=== PATIENT | female | born 1995 | race Caucasian/White ===

== ENCOUNTER → 2023-12-11 | Outpatient (CLI) | payer OTHER, SELFPAY | END | disposition home or self-care (01) | LOC: LABSPEC 12:22 | PROVIDERS: Referring Provider Physician Assistant; Visit Provider Physician Assistant | DX: N39.0 Urinary tract infection, site not specified (principal) | CPT/HCPCS: 87086; 87088; 87186 ==

== ENCOUNTER → 2024-01-13 | Outpatient (CLI) | payer OTHER, SELFPAY | END | disposition home or self-care (01) | LOC: LABSPEC 12:04 | PROVIDERS: Referring Provider Physician Assistant; Visit Provider Physician Assistant | DX: R30.0 Dysuria (principal) | CPT/HCPCS: 87086; 87088; 87186 ==

== ENCOUNTER 2024-06-28 09:27 | Day surgery (SDC) | payer OTHER, SELFPAY ==
[2024-06-28] VITALS (12 sets, daily range): BP systolic 111–128; BP diastolic 61–89; PULSE 74–100; RESP 14–20; TEMP 36.6–37.2; O2SAT 98–100; BMI 23.3
[2024-06-28] MEDS: Bupiv/Epi 0.25% 30 ML Vial (09:39)
[2024-06-28] MEDS: Lactated Ringers 1,000 ML 15 ML IV (09:56)
--- NOTE | 2024-06-28 10:02 | PCM.PRE.AN2 ---
ASA Classification* ASA Classification ASA Classification: 2 (Be wary of bronchospasm -- the patient reports severe asthma around cigarette smoke, so it is possible the sevo triggers a bronchospasm. Low threshold to give albuterol) Assessment & Plan Anesthesia* Anesthesia Assessment Anesthesia Assessment: Discussed sedation and/or anesthesia options, risks, benefits, and alternatives with patient/parents/legal guardian/POA. Questions invited. The patient/parents/legal guardian/POA seems to understand and agrees to proceed with anesthesia plan. Reviewed the physical assessment, medical history, allergy history and patient home medications list prior to surgery/procedure/anesthetic and documented any changes. Performed airway and anesthesia risk assessments. Anesthesia Type Anesthesia Type: General History Source History Obtained from:: Patient and Chart Anesthesia Focused Assessment* Temperature: 98.5 F Pulse Rate: 81 Blood Pressure: 111/70 Respiratory Rate: 16 Pulse Ox: 100 Airway Assessment Mouth opens: >3 cm Mallampati Score: II Teeth Condition: Intact Neck Range of motion (ROM): Full ROM Focused Labs Anesthesia Preop lab: CBC WBC 10.8 K/mm3 (4.4-11.0) 06/09/24 17:30 06/09/24 RBC 4.70 M/mm3 (4.2-5.4) 06/09/24 17:30 06/09/24 Hgb 14.1 g/dL (12.0-15.0) 06/09/24 17:30 06/09/24 Hct 42.0 % (37-47) 06/09/24 17:30 06/09/24 Plt Count TNP 06/09/24 17:30 06/09/24 CHEMISTRY Potassium 4.3 mmol/L (3.3-5.1) 06/09/24 17:30 06/09/24 Sodium 135 mmol/L (133-145) 06/09/24 17:30 06/09/24 BUN 10 mg/dL (4-19) 06/09/24 17:30 06/09/24 Creatinine 0.90 mg/dL (0.70-1.20) 06/09/24 17:30 06/09/24 Glucose 113 mg/dL (70-99) H 06/09/24 17:30 06/09/24 COAG Urine Test Pending 06/28/24 09:50 06/28/24 Pre-Assessment Diagnosis/Proposed Procedure Planned Operative Procedure(s): LAP CHOLEY WITH IOC Anesthesia History Anesthesia History - waste disposal 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 When Was Last Pacemaker Check QUESTION #4 FULL TEXT: You/Your Family Experience fever (hyperthermia) with Anesthesia Last Oral Intake Last Oral intake: Last Oral Intake NPO since 19:00 06/28/24 09:46 Meds taken in AM with sips of No 06/28/24 09:46 water? Meds patient instructed to take am of surgery PONV PONV - waste disposal leakage tester: PONV - waste disposal leakage tester Female Yes 06/18/24 10:13 HX of Motion Sickness Yes 06/18/24 10:13 HX of N/V After Surgery No 06/18/24 10:13 Non-Smoker Yes 06/18/24 10:13 Duration of Surgery greater No 06/18/24 10:13 than 60 minutes Number of Risk Factors 3 06/18/24 10:13 PONV Score Moderate Risk 06/18/24 10:13 Height & Weight Height & Weight: Anesthesia: Height & Weight Height 5 ft 4 in 06/28/24 09:46 Weight: 61.7 kg 06/28/24 09:46 Body Mass Index (BMI) 23.3 06/28/24 09:46 Respiratory Assessment Respiratory Assessment - waste disposal leakage tester: Respiratory Tract Infection Hx - waste disposal leakage tester Hx Respiratory Tract Infection No 06/18/24 10:13 STOP Sleep Apnea STOP Sleep Apnea - waste disposal leakage tester: STOP Sleep Apnea - waste disposal leakage tester Hx Hypertension No 06/18/24 10:13 Hx Sleep Apnea No 06/18/24 10:13 CPAP BIPAP Do you snore loudly (louder No 06/18/24 10:13 than talking or can be heard Do you often feel tired/ No 06/18/24 10:13 fatigued/ sleepy during daytime? Has anyone observed you stop No 06/18/24 10:13 breathing during sleep? STOP Results Negative 06/18/24 10:13 QUESTION #5 FULL TEXT : Do you snore loudly (louder than talking or can be heard through closed doors)? 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 Specify any problems Hx of Preganancy in last 3 No 06/18/24 10:13 Months Nurse Filling Out Transfusion DSCHRIBER 06/18/24 10:13 & Questions: Date: 06/18/24 06/18/24 10:13 Time: 10:14 06/18/24 10:13 Patient unable to answer at this time (ie. confused, unrespo /Reproduction History /Reproductive History - waste disposal leakage tester: /Reproductive Hx- waste disposal leakage tester Hx Now No 06/18/24 10:13 Gestational Age (in weeks): EDC: Hx Hx Para Hx Section SAB No 06/18/24 10:13 Active Medications Active Medications: Current Medications Generic Name Dose Route Start Last Admin Trade Name Freq PRN Reason Stop Dose Admin Lactated Ringer's 1,000 mls @ 15 mls/hr 06/28/24 09:45 06/28/24 09:56 IV 15 mls/hr .Q48H ZOILA Administration PFSH Medical History (Updated 06/18/24 @ 10:17 by Radhika Nieto) Wears glasses Non-smoker Constipation Home Medications ?Medication ?Instructions ?Recorded ?Last Taken ?Type ondansetron 4 mg disintegrating 4 mg PO Q6H PRN nausea and 06/09/24 Unknown Rx tablet vomiting #15 tabs albuterol sulfate 90 mcg/actuation 2 puff inhalation Q6H PRN dyspnea 06/18/24 Unknown History aerosol inhaler Allergy/AdvReac Type Severity Reaction Status Date / Time cigarette smoke Allergy Intermediate Shortness Verified 06/28/24 09:45 of breath morphine AdvReac Swelling Verified 06/28/24 09:45 Surgical History (Updated 06/18/24 @ 10:17 by Radhika Nieto) History of wisdom tooth extraction Social History Smoking Status: Never smoker alcohol intake: never substance use type: does not use Review of Systems (Anesthesia) ROS Narrative System reviewed and no additional complaints, except as documented. Physical Exam Const alert, oriented x3 and average body habitus Resp normal respiratory effort, normal air movement and clear to auscultation bilaterally Cardio regular rate, regular rhythm, no murmurs and diaphoretic
[2024-06-28 10:12] LABS: Internal QC Validated? YES +Cl - CLEAR BKGD; Pregnancy, Urine Negative Negative
--- NOTE | 2024-06-28 10:37 | HP.PCM_ITS ---
HPI - General General Date of Admission: 06/28/24 Date of Service: 06/28/24 Chief Complaint: RUQ pain HPI Narrative FARIBA LUCAS, is a 28 F who presents for lap rachel. Patient with long standing issues w RUQ pain [facility] Medical History (Updated 06/28/24 @ 10:[address] Donnie Jewell MD) Biliary colic Wears glasses Non-smoker Constipation Home Medications ?Medication ?Instructions ?Recorded ?Last Taken ?Type ondansetron 4 mg disintegrating 4 mg PO Q6H PRN nausea and 06/09/24 Unknown Rx tablet vomiting #15 tabs albuterol sulfate 90 mcg/actuation 2 puff inhalation Q 6H PRN dyspnea 06/18/24 Unknown History aerosol inhaler Allergy/AdvReac Type Severity Reaction Status Date / Time cigarette smoke Allergy Intermediate Shortness Verified 06/28/24 09:45 of breath morphine AdvReac Swelling Verified 06/28/24 09:45 Surgical History History of wisdom tooth extraction Social History Smoking Status: Never smoker alcohol intake: never substance use type: does not use Vital Signs Vital Signs Vital Signs: 06/28/24 09:46 06/28/24 09:46 06/28/24 10:08 Temperature 98.5 F 98.5 F Temperature Source Temporal Pulse Rate 81 81 Respiratory Rate 16 16 Respiratory Pattern Normal Blood Pressure 111/70 111/70 Blood Pressure Mean 83 Blood Pressure Source Monitor Blood Pressure Position Semi-Fowlers Blood Pressure Location Left Arm Pulse Ox 100 100 Oxygen Delivery Method Room Air Weight Weight: 136 lb 0.403 oz Body Mass Index (BMI) 23.3 Physical Exam Const alert, oriented x3 and no apparent distress Results Lab / Micro Data Labs: Laboratory Results - last 24 hr 06/28/24 09:50: Urine Test Negative Assessment & Plan Assessment/Plan (1) Biliary colic: PLAN: Plan lap rachel today
--- NOTE | 2024-06-28 11:00 | GALL_PTH ---
PATIENT: FARIBA LUCAS [place] [facility] [place][id number] AGE/SX: 28/F ROOM: RE06/28/[address]: Dr. Donnie Jewell MD : 1995 BED: DIS: 06/28/2024 SPEC #: [id number] RECD: 06/28/24 13:01 STATUS: YAYO REGiulia #: [id number] MELANIE: 06/28/24 11:[address]: Donnie Jewell DEPT: SURGICAL PATHOLOGY RECD BY: Martell Francois ENTERED: 06/28/24 13:38 SP TYPE: MENDOZA URIBE DR: NETO CHAPMAN Tissues: A - Gallbladder, NOS Procedures: Surgery Specimen Level III HEADER OPERATION: Laparoscopic, cholecystectomy with IOC PRE-OP DIAGNOSIS: Biliary colic TISSUE SUBMITTED: A- Gallbladder MICROSCOPIC DIAGNOSIS A. Gallbladder, cholecystectomy: * Mild chronic cholecystitis MICROSCOPIC DESCRIPTION Slides are reviewed. GROSS DESCRIPTION A. Received in formalin in a container labeled with the patient's name, date of , and gallbladder is a 6.7 x 2.2 x 2.0 cm intact cholecystectomy specimen. A clamped, 0.5 cm in length by 0.3 cm in diameter cystic duct margin is identified and inked black. The serosa is blue-dey, smooth, and glistening with an opposing roughened and cauterized hepatic bed. The specimen is opened to reveal an abundant amount of thick brown bile with no stones identified in the specimen or in the container. The mucosa is ching-brown and predominantly velvety. There is an average wall thickness of 0.2 cm. Belt Notcher sections:A1. Cystic duct margin, en face with full-thickness sections [facility] 06-28-2024 CPT:[id number]
--- NOTE | 2024-06-28 11:27 | RAD_ITS ---
EXAM: DX cholangiogram OR initial CLINICAL HISTORY: Cholecystectomy with intraoperative cholangiogram TECHNIQUE: Cholangiogram with 44 images FINDINGS: Total fluoroscopy time 7.5 seconds Cumulative dose 1.54 mGy Contrast is instilled into the cystic duct post cholecystectomy. Cystic duct appears within limits. Contrast fills intra and extrahepatic biliary ducts without ductal dilation. Contrast flows freely into the duodenum. No evidence of filling defect. Please refer to operative report for further detail. RAD/Cholangiogram/ O R,Initial IMPRESSION: Intraoperative cholangiogram as above. Reading Location: [id number]
--- NOTE | 2024-06-28 12:02 | EX.PCM.DISCH ---
Discharge Instructions Diet Discharge Diet: Light diet - advance as tolerated Activity Discharge Activity: Return to Normal Activity and May Shower May shower in (days): 1 Ice area for (Minutes): 30 Lifting Restrictions: NO LIFTING OVER 20 POUNDS FOR 3-4 WEEKS Dressing / Incision Call your doctor if your incision/area has: Continuous Slow Oozing, Sudden Increased Bleeding, Increased Pain/ Swelling, Increased Redness, Foul Smelling Discharge and Swelling at the incision site Call your doctor if you observe: Fever of 101 or Higher Cleanse incision/area with: Soap & Water Follow Up Care Please Follow Up With: Donnie Jewell MD When: 2 weeks. Please call office to schedule appointment Test Results: Test results from this visit will be discussed in further detail at your follow-up appointment, if applicable. Discharge Plan Admission Primary Reason for Your Visit: Laparoscopic cholecystectomy Attending Provider: Donnie Jewell Primary Care Provider: ALIE ADDISON Instructions Print Language: Estonian Discharge Orders/Prescriptions Prescriptions: New oxycodone-acetaminophen [Percocet] 5-325 mg tablet 1 tab PO Q8H PRN (Reason: pain) 3 Days Qty: 10 0RF Continued ondansetron 4 mg tablet,disintegrating 4 mg PO Q6H PRN (Reason: nausea and vomiting) Qty: 15 0RF albuterol sulfate 90 mcg/actuation HFA aerosol inhaler 2 puff inhalation Q6H PRN (Reason: dyspnea) Referrals / Follow Up: ALIE ADDISON CRNP [Primary Care Provider] - Disposition Disposition (needs filled in before D/C Order can be placed): Home, Self Care
--- NOTE | 2024-06-28 12:06 | PCM.OPRPT ---
Problems Associated Problem List Diagnoses (1) Biliary colic: Procedures Digestive 40xxx-49xxx: 36046 Laparo cholecystectomy/graph Operative Report (Standard) Operative Information Date of Procedure: 06/28/24 Pre-Operative Diagnosis: Biliary colic Post-Operative Diagnosis: Same Surgery/Procedure Performed: Laparoscopic cholecystectomy with intraoperative cholangiograms side panel hanger: Yes Pbx Mechanic: Ancelmo Cole Tasks completed by cutting table operator first: Closing, Trocar and Retracting Type of Anesthesia: General and Local RN Documented Start/Stop Times: Operation Date: 06/28/24 11:00 Case Time Into Pre-Op 06/28/24 09:38 Out of Pre-Op 06/28/24 10:52 Anesthesia Start 06/28/24 10:55 Into Room 06/28/24 10:55 Procedure Start 06/28/24 11:16 Procedure End 06/28/24 12:11 Anesthesia End 06/28/24 12:13 Out of Room 06/28/24 12:13 Into Recovery 06/28/24 12:15 Procedure Start Time: 11:16 Procedure Stop Time: 12:11 Select all DRAINS/GRAFTS/IMPLANTS that apply: None Estimated Blood Loss: 20 mL Specimen collected: Yes Description of specimen(s) removed: Gallbladder Description of surgery: Patient is a 28-year-old female who presented to my office with persistent right upper quadrant pain off and on for years. She had an ultrasound that showed no gallstones or wall thickening. A HIDA scan was also performed and was normal however her symptoms were pretty classic for biliary colic. She was quite miserable. I offered her a laparoscopic cholecystectomy in hopes that this would resolve her symptoms. We discussed the details of the planned surgery including risk benefits and alternatives. She wished to proceed. She was brought to the operating room today following informed consent. She was placed supine on the operative table with arms outstretched on arm boards. A general anesthesia was induced. Once adequately sedated the abdomen was then prepped and draped in the usual sterile manner. A 5 mm incision was made just below the umbilicus through which a 5 mm trocar was placed optically. This was placed without incident. Once in place the abdomen is then fully insufflated with CO2 gas. A 5 mm 0 degree scope was inserted. There were no signs of bowel or vascular injury. Next two 5 mm trocars were placed under direct visualization of the right upper quadrant. Next a 12 mm trocar was placed in the epigastric area. The gallbladder was identified. It appeared grossly normal as it was not thickened. There was no adhered omentum. The gallbladder was reflected in a cephalad direction. The peritoneum on either side of the gallbladder was then incised using hook electrocautery. The infundibulum the gallbladder was then dissected out. The cystic duct and cystic artery were both dissected out circumferentially. The lower third of the gallbladder was then removed from the cystic plate. At this point we are able to achieve a critical view of safety seen both the cystic duct and cystic artery is the only 2 structures coming to the gallbladder. Next cholangiograms were then performed by placing a 10 mm clip on the gallbladder side of the cystic duct. A small ductotomy was made using curved scissors. There was some bleeding from a superficial vessel. This was cauterized. The cholangiogram catheter was then inserted and then cholangiograms were then performed using Omnipaque. This showed good opacification of the biliary tree without any obvious filling defects. The cystic duct was then clipped 3 times using a 10 mm clip packerhead machine operator. The cystic duct was then transected. The cystic artery was then clipped and transected in a similar manner. The gallbladder was then removed from the liver bed using electrocautery and the J-hook. The gallbladder once free was placed into a bag and was easily brought out through the 12 mm trocar site. The trocar was then replaced. Liver bed was nicely hemostatic. The right upper quadrant was then copiously irrigated and suctioned. Hemostasis was excellent. The fascia at the epigastric trocar site was then closed using 0 PDS with the aid of the suture passer/fascial closure device. The incisions were then injected with local anesthetic and then closed using 4-0 Vicryl. Skin glue was applied as dressing. She was awakened anesthesia and taken recovery in good condition. A MAINTENANCE AND ENGINEERING MANAGER was utilized as a first helper. Her role included holding the camera, retracting the gallbladder and assistance with skin closure Surgical Findings: Normal cholangiogram Complications Complications: No Admit VTE Documentation VTE Present on Admission: No VTE Mechan Device Prophylaxis: SCD's VTE Pharm Prophylaxis ordered?: No Reason prophylaxis not ordered: Treatment Not Indicated
--- NOTE | 2024-06-28 12:25 | PCM.POST.ANE ---
Anesthesia: Postop Eval I Current Vital Signs Temperature: 98 F Pulse Rate: 84 Blood Pressure: 111/65 Respiratory Rate: 20 Pulse Ox: 100 Oxygen Delivery Method: Room Air Assessment Airway patent: Yes Spontaneous unlabored respirations: Yes Mental status: Awake nausea: Yes Vomiting: No Anesthesia Complication: No Fluid Hydration Crystalloid volume administer (ml): 1,100 Total IV fluid infused: 1,100 Progress Note Anesthesia document: Postop Eval 1 completed: Yes
--- NOTE | 2024-06-28 13:49 | POSTOPAN2_ITS ---
Anesthesia Postop Eval I Sum Postop Eval Completion status Anesthesia document: Postop Eval 1 completed: Yes Anesthesia Postop Eval I Summary Anesthesia Postop Eval I Summary: Anesthesia Postop Eval I: Assessment Summary Airway patent Yes 06/28/24 12:26 [email or web address] Spontaneous unlabored Yes 06/28/24 12:26 [email or web address] respirations Mental status Awake 06/28/24 12:26 [email or web address] nausea Yes 06/28/24 12:26 [email or web address] Vomiting No 06/28/24 12:26 [email or web address] Anesthesia Postop Eval I: Fluid Summary Crystalloid volume administer 1,100 06/28/24 12:26 [email or web address] (ml) Colloids volume administered ( ml) Blood Product volume administered (ml) Total IV fluid infused 1,100 06/28/24 12:26 [email or web address] Anesthesia Postop Eval I: Summary Notes Anesthesia Complication No 06/28/24 12:26 [email or web address] Anesthesia Complication Comment: Post-operative progress note Anesthesia: Postop Eval II Evaluation Mental status: Awake Pain Level: 0 nausea: No Vomiting: No Complications Anesthesia Complication: No
--- NOTE | 2024-06-28 13:49 | PCM.POSTANE2 ---
Anesthesia Postop Eval I Sum Postop Eval Completion status Anesthesia document: Postop Eval 1 completed: Yes Anesthesia Postop Eval I Summary Anesthesia Postop Eval I Summary: Anesthesia Postop Eval I: Assessment Summary Airway patent Yes 06/28/24 12:26 WET [email or web address] Spontaneous unlabored Yes 06/28/24 12:26 WET [email or web address] respirations Mental status Awake 06/28/24 12:26 WET [email or web address] nausea Yes 06/28/24 12:26 WET [email or web address] Vomiting No 06/28/24 12:26 WET [email or web address] Anesthesia Postop Eval I: Fluid Summary Crystalloid volume administer 1,100 06/28/24 12:26 WET [email or web address] (ml) Colloids volume administered ( ml) Blood Product volume administered (ml) Total IV fluid infused 1,100 06/28/24 12:26 WET [email or web address] Anesthesia Postop Eval I: Summary Notes Anesthesia Complication No 06/28/24 12:26 WET [email or web address] Anesthesia Complication Comment: Post-operative progress note Anesthesia: Postop Eval II Evaluation Mental status: Awake Pain Level: 0 nausea: No Vomiting: No Complications Anesthesia Complication: No
== END 2024-06-28 14:41 | disposition home or self-care (01) ==
LOC: SDC 09:28 → AC 09:29
PROVIDERS: Anesthesiology; PCP Nurse Practitioner Adult Health; Referring Provider Surgery; Visit Provider Surgery
PROC: (CPT 47610; principal; 2024-06-28 10:40)
DX: K80.44 Calculus of bile duct with chronic cholecystitis without obstruction (principal)
CPT/HCPCS: 47563; 00790; 74300; 76000; 81025; 88304; 93005; C1769; J2405

== ENCOUNTER 2024-09-02 03:46 | Emergency (ER) | payer OTHER, SELFPAY ==
[2024-09-02 03:46] VITALS: BP 119/68; PULSE 83; RESP 16; TEMP 37.1; O2SAT 99; BMI 22.9
[2024-09-02] MEDS: 0.9% Normal Saline (1000mL) 1,000 ML 999 ML IV (04:10)
[2024-09-02] MEDS: DiphenhydrAMINE 50 MG/ML Syringe IV (04:10)
--- NOTE | 2024-09-02 05:06 | EX.ED.DYSGE1 ---
HPI History of Present Illness Chief Complaint: Headache Informant: patient Narrative Narrative: Patient is a 28-year-old female who reports a past medical history of migraine headache. She states that she is approximately 4 weeks . She reports that with her last child who is now 2 years old she did have more frequent migraines. She states that she developed a headache yesterday that came on gradually and increased over the course of hours. She states she is sensitive to light and sound and that this headache feels similar nature to her previous. She reports because of her she knows there is limited medications she can take but despite using [id number] medications she has had no symptom improvement and therefore comes in for evaluation [facility] Medical History Biliary colic Wears glasses Non-smoker Constipation Migraine Pneumonia Vaginal delivery Home Medications ?Medication ?Instructions ?Recorded ?Last Taken ?Type ondansetron HCl 4 mg tablet 4 mg PO Q8H PRN nausea and 04/20/24 Unknown Rx vomiting #10 tabs vitamin#30 30 mg iron-10 1 cap PO QDAY 04/20/24 Unknown History mg iron-folic acid 1 mg-omg3 capsule albuterol sulfate 90 mcg/actuation 2 puff inhalation Q6H PRN dyspnea 06/18/24 Unknown History aerosol inhaler Allergy/AdvReac Type Severity Reaction Status Date / Time cigarette smoke Allergy Intermediate Shortness Verified 07/14/24 08:10 of breath morphine AdvReac Swelling Verified 07/14/24 08:10 Surgical History S/P cholecystectomy History of wisdom tooth extraction Social History (System 07/14/24 @ 08:10 by Edilma García) household members: children housing: other details: Boyfriend Smoking Status: Never smoker alcohol intake: never substance use type: does not use ROS ROS ED Constitutional Constitutional ED: Denies chills or fever(s) Eyes Eyes: Reports other Details: Positive photophobia ENT ENT ED: Denies sore throat Cardiovascular Cardiovascular: Denies chest pain Respiratory/Chest Respiratory/Chest: Denies cough or dyspnea Gastrointestinal Gastrointestinal: Reports nausea; Denies abdominal pain, diarrhea or vomiting Genitourinary Genitourinary ED: Denies dysuria or hematuria Musculoskeletal Musculoskeletal: Denies myalgias Integumentary Denies rash Neurologic Neurologic: Reports headache(s) Hematologic/Lymphatic Hematologic/Lymphatic: Denies easy bleeding or easy bruising EXAM Physical Exam Const Vital Signs: 09/02/24 03:46 09/02/24 05:13 Temperature 98.7 F 98.7 F Temperature Source Oral Pulse Rate 83 71 Respiratory Rate 16 16 Blood Pressure 119/68 102/57 L Blood Pressure Mean 85 72 Pulse Ox 99 100 Oxygen Delivery Method Room Air Positive well nourished and well developed General Appearance ED: well developed; Negative for pallor HEENT HEENT Narrative: Normocephalic atraumatic Eyes PERRL and EOMs intact bilaterally General Eye ED: Negative for scleral icterus Neck supple Neck Narrative: No nuchal rigidity or meningeal signs Resp normal respiratory effort and clear to auscultation bilaterally Cardio regular rate and regular rhythm Extremity normal to inspection Neuro oriented x3, CN's II-XII intact bilaterally and no sensory deficits noted Neuro Narrative: GCS of 15 Cranial nerves II through XII are grossly intact without focal neurologic deficit No pronator drift no dysmetria no truncal ataxia NIH stroke scale score of 0 Sensorium / Orientation: alert Motor Exam: strength 5/5 throughout Psych mental status grossly normal Skin no rashes or lesions noted and no wounds General Skin Exam: Negative for jaundice or pallor MDM MDM MDM Narrative Medical decision making narrative: Patient arrived to the ER with stable vitals and a normal neurologic exam. She reported a past medical history of headache and also stated that with her last she had more frequent migraine. This headache came on gradually and increased over hours and she denies any sick symptoms or recent trauma. Therefore I have low concern for brain mass or subarachnoid subdural hemorrhage or meningitis and do not feel the need for laboratory studies or CT scan. The patient was treated with IV fluid Benadryl and Reglan. On reevaluation she states her headache is down to a value of a 2 and her neurologic exam remains normal. Therefore at this time with a normal neurologic exam improvement/near resolution of her headache and stable vitals I do not feel there is need for further intervention and she is otherwise safe for discharge History & Record Review Discussion w/independent historian: Patient Discharge Plan Triage Chief Complaint: Headache ED Provider: Rigo Wei Dx/Rx/DC Orders Clinical Impression: Cephalgia Instructions: ED, Migraine (Classical) Prescriptions: No Action PNV #[id number] 30 mg iron-10 mg iron-1 mg capsule 1 cap PO QDAY ondansetron HCl 4 mg tablet 4 mg PO Q8H PRN (Reason: nausea and vomiting) Qty: 10 0RF albuterol sulfate 90 mcg/actuation HFA aerosol inhaler 2 puff inhalation Q6H PRN (Reason: dyspnea) Primary Care Provider: ALIE ADDISON Referrals: ALIE ADDISON CRNP [Primary Care Provider] - Activity Restrictions/Additional Instructions: Please return to the ER should you have any further concerns or worsening of symptoms Print Language: Amharic Disposition Disposition: Home, Self Care Discharge Date/Time: 09/02/24 05:26
[2024-09-02 05:13] VITALS: BP 102/57; PULSE 71; RESP 16; TEMP 37.1; O2SAT 100
== END 2024-09-02 05:26 | disposition home or self-care (01) ==
PROVIDERS: Emergency Provider Emergency Medicine; PCP Nurse Practitioner Adult Health; Visit Provider Emergency Medicine
DX: O99.891 Other specified diseases and conditions complicating pregnancy (principal); R51.9 Headache, unspecified; Z3A.01 Less than 8 weeks gestation of pregnancy; Z90.49 Acquired absence of other specified parts of digestive tract
CPT/HCPCS: 96361; 96374; 96375; 99283; A4216

== ENCOUNTER 2024-11-10 13:35 | Emergency (ER) | payer OTHER, SELFPAY ==
[2024-11-10 13:36] VITALS: BP 112/71; PULSE 88; RESP 14; TEMP 36.5; O2SAT 99; BMI 23.0
--- NOTE | 2024-11-10 14:14 | EDS_ITS ---
HPI History of Present Illness Chief Complaint: Headache Narrative Narrative: Patient is a 29-year-old female G2, P1 currently 14 weeks who presents to the emergency department the chief complaint of headache. Patient states that she has a history of migraine headaches and this feels like a migraine headache. States that she did not have complications with her previous . States that she has had a headache now for 2 days that progressively worsened she states that she called her OB who gave her Reglan, magnesium and advised her to also take Tylenol. She states that she tried these medications yesterday without any relief therefore she came here to be further evaluated. [facility] Medical History Biliary colic Wears glasses Non-smoker Constipation Migraine Pneumonia Vaginal delivery Home Medications ?Medication ?Instructions ?Recorded ?Last Taken ?Type ondansetron HCl 4 mg tablet 4 mg PO Q8H PRN nausea and 04/20/24 Unknown Rx vomiting #10 tabs vitamins 30 30 mg iron-10 1 cap PO QDAY 04/20 Unknown History mg iron-folic acid 1 mg-om3 capsule albuterol sulfate 90 mcg/actuation 2 puff inhalation Q 6H PRN dyspnea 06/18/24 Unknown History aerosol inhaler Allergy/AdvReac Type Severity Reaction Status Date / Time cigarette smoke Allergy Intermediate Shortness Verified 11/10/24 13:38 of breath morphine AdvReac Swelling Verified 11/10/24 13:38 Surgical History S/P cholecystectomy History of wisdom tooth extraction Social History household members: children housing: other details: Boyfriend Smoking Status: Never smoker alcohol intake: never substance use type: does not use ROS ROS ED ROS Narrative Constitutional: Complains headache as noted above denies any lightness, fevers, chills Eyes: Denies changes vision double vision blurry vision Cardiovascular: Denies chest pain Respiratory: Denies shortness of breath Abdomen: Denies abdominal pain nausea vomiting diarrhea : Denies any urinary symptoms Neurological: Denies any numbness, weakness, tingling Musculoskeletal: Denies back pain Skin: Denies any rashes or lesions EXAM Physical Exam Narrative Exam Narrative: General: Patient was lying in bed rest comfortably did not appear to be acute distress Head: Atraumatic, normocephalic Eyes: PERRL bilaterally, EOMI bilaterally, no conjunctival injection noted Neck: Soft, supple, trachea midline Cardiovascular: Regular rate Abdomen: No tenderness to palpation, soft Extremities: +5/5 strength noted in the bilateral upper and lower extremities, radial pulses +2/1 about extremities, no pedal edema exam Neurological: Patient fine commands that she was at [facility] the year is 2024. NIH of 0 GCS 15 Skin: Warm, dry, intact no rashes lesions noted Const Vital Signs: 11/10/24 13:36 Temperature 97.7 F L Temperature Source Temporal Pulse Rate 88 Respiratory Rate 14 Blood Pressure 112/71 Blood Pressure Mean 84 Pulse Ox 99 Oxygen Delivery Method Room Air MDM MDM MDM Narrative Medical decision making narrative: Patient is a 29-year-old female who presented to the emergency department chief complaint of migraine headache. States that once again this feels like her migraine headache. On the differential diagnosis includes but not limited to migraine headache, cluster headache, tension headache. Patient will given IV fluids Reglan and Tylenol. She will be observed and reevaluated On reevaluation the patient is feeling much improved and would like to go home at this point in time. She is advised to follow-up with her doctor outpatient setting return with worsening symptoms or any concerns. All question concerns answered she was discharged home in stable condition. Discharge Plan Triage Chief Complaint: Headache ED Provider: Nasir Cisse Dx/Rx/DC Orders Clinical Impression: Headache, migraine, Prescriptions: No Action PNV [id number] 30 mg iron-10 mg iron-1 mg capsule 1 cap PO QDAY ondansetron HCl 4 mg tablet 4 mg PO Q8H PRN (Reason: nausea and vomiting) Qty: 10 0RF albuterol sulfate 90 mcg/actuation HFA aerosol inhaler 2 puff inhalation Q6H PRN (Reason: dyspnea) Primary Care Provider: ALIE ADDISON Referrals: ALIE ADDISON CRNP [Primary Care Provider, Family Practice] Activity Restrictions/Additional Instructions: Ensure you are hydrating with plenty of water. Return with worsening symptoms or other concerns. You can take a gram of Tylenol every 6 hours with a max dose of Tylenol in 24 hours 4000 mg. Use other prescriptions that your OB prescribed you as well. Print Language: French Disposition Disposition: Home, Self Care
[2024-11-10] MEDS: 0.9% Normal Saline (1000mL) 1,000 ML 999 ML IV (14:22)
[2024-11-10 15:49] VITALS: BP 112/71; PULSE 88; RESP 14; TEMP 36.5; O2SAT 99
== END 2024-11-10 15:50 | disposition home or self-care (01) ==
PROVIDERS: Emergency Provider Emergency Medicine; PCP Nurse Practitioner Adult Health; Visit Provider Emergency Medicine
DX: O99.352 Diseases of the nervous system complicating pregnancy, second trimester (principal); R29.700 NIHSS score 0; G43.909 Migraine, unspecified, not intractable, without status migrainosus; Z3A.14 14 weeks gestation of pregnancy; Z90.49 Acquired absence of other specified parts of digestive tract
CPT/HCPCS: 96361; 96374; 99285; A4216

== ENCOUNTER 2025-01-27 13:45 | Outpatient (CLI) | payer OTHER, SELFPAY ==
[2025-01-27 14:02] VITALS: PULSE 90; O2SAT 100
[2025-01-27 14:07] VITALS: PULSE 96; O2SAT 100
[2025-01-27 14:08] VITALS: BP 107/66; PULSE 98; RESP 16; TEMP 37.2; O2SAT 99
[2025-01-27 14:11] VITALS: BP 107/66; PULSE 96
[2025-01-27 14:15] VITALS: BMI 25.7
[2025-01-27] MEDS: Lactated Ringers 1,000 ML 500 ML IV (14:23)
[2025-01-27 14:33] LABS: Hematocrit 35.8 % (37-47); Hemoglobin 11.7 g/dL (12.0-15.0); Mean Corp Hgb Conc 32.7 g/dL (32-36); Mean Corpuscular Volume 96.2 fL (81-99); Mean Platelet Vol. 9.3 fl (6.2-12.0); Platelet Count 225 K/mm3 (150-450); RBC Distribution Width CV 12.8 % (11.6-14.6); RBC Distribution Width SD 44.8 fl (35.1-43.9); Red Blood Count 3.72 M/mm3 (4.2-5.4); White Blood Count 10.5 K/mm3 (4.4-11.0)
[2025-01-27 15:16] LABS: AST(SGOT) 33 U/L (<=31); Alanine Aminotransfer ALT/SGPT 17 U/L (<=34); Albumin, Serum 3.8 g/dL (3.5-5.0); Alkaline Phosphatase 84 U/L (35-104); Anion Gap 15 (5-15); BUN 6 mg/dL (4-19); BUN/Creat Ratio 11.3 RATIO (10-20); Calcium,Total 8.2 mg/dL (7.6-11.0); Carbon Dioxide 18.3 mmol/L (21.0-32.0); Chloride 103 mmol/L (98-108); Estimated Creatinine Clearance 149.93 ml/min (50-250); Globulin 3.8 g/dL (2.2-4.2); Glucose 80 mg/dL (70-99); Potassium 3.4 mmol/L (3.3-5.1); Uric Acid 4.0 mg/dL (2.6-6.0)
--- NOTE | 2025-02-02 12:19 | OB.TRI.NOTE ---
HPI - General General Date of Service: 01/27/25 Chief Complaint: Decreased FM HPI Narrative FARIBA LUCAS, is a 29 F who presents. Maternal Data Information Gestational age: 25 weeks PFSH PFS Medical History Biliary colic Wears glasses Non-smoker Constipation Migraine Pneumonia Vaginal delivery Home Medications ?Medication ?Instructions ?Recorded ?Last Taken ?Type ondansetron HCl 4 mg tablet 4 mg PO Q8H PRN nausea and 04/20/24 Unknown Rx vomiting #10 tabs vitamins 30 30 mg iron-10 1 cap PO QDAY 04/20/24 Unknown History mg iron-folic acid 1 mg-om3 capsule albuterol sulfate 90 mcg/actuation 2 puff inhalation Q6H PRN dyspnea 06/18/24 Unknown History aerosol inhaler Allergy/AdvReac Type Severity Reaction Status Date / Time cigarette smoke Allergy Intermediate Shortness Verified 01/27/25 14:16 of breath morphine AdvReac Swelling Verified 01/27/25 14:16 Surgical History S/P cholecystectomy History of wisdom tooth extraction Social History household members: children housing: other details: Boyfriend Smoking Status: Never smoker alcohol intake: never substance use type: does not use NST FHR Rate Baby A Baseline: 145 Variability:: Moderate Decelerations:: Variable Uterine Activity:: quiet Assessment & Plan (1) Decreased movement: QUALIFIERS: Fetus number: single or unspecified fetus Trimester: second trimester Qualified Code(s): O36.8120 - Decreased movements, second trimester, not applicable or unspecified PLAN: Plan Reassuring NST for GA
== END 2025-01-27 16:30 | disposition home or self-care (01) ==
LOC: WPOUT 13:58 → WP 13:59
PROVIDERS: PCP Nurse Practitioner Adult Health; Referring Provider Obstetrics & Gynecology; Visit Provider Obstetrics & Gynecology
DX: O36.8120 Decreased fetal movements, second trimester, not applicable or unspecified (principal); Z90.49 Acquired absence of other specified parts of digestive tract; Z3A.25 25 weeks gestation of pregnancy
CPT/HCPCS: 96374; 96361; 36415; 59050; 80053; 84550; 85027; 99221; G0378; J2405